=== PATIENT | female | born 1995 | race American Indian/Alaskan Native ===

== ENCOUNTER 2016-08-14 16:20 | Emergency (ER) | payer SELFPAY ==
[2016-08-14 17:14] LABS: Basophils % (Auto) 0.4 % (0.0-1.8); Eosinophils % (Auto) 0.5 % (0.0-4.3); Hematocrit 36.6 % (30.3-42.9); Hemoglobin 11.7 gm/dl (10.1-14.3); Mean Corpuscular HGB Conc 32 % (30-34); Mean Corpuscular Volume 78 fl (79-97); Platelet Count 263 K/mm3 (140-440); Red Blood Count 4.71 M/mm3 (3.65-5.03); Red Cell Distribution Width 15.8 % (13.2-15.2); White Blood Count 10.9 K/mm3 (4.5-11.0)
[2016-08-14 17:24] LABS: Mean Corpuscular Hemoglobin 25 pg (28-32)
[2016-08-14 17:57] LABS: Bilirubin,Urine NEG (Negative); Blood,Urine SM (Negative); Ketones,Urine TR mg/dL (Negative); Leukocyte Esterase,Urine NEG (Negative); Mucus,Urine FEW /HPF; Nitrite,Urine NEG (Negative); Protein,Urine <15 mg/dL mg/dL (Negative); Urobilinogen,Urine < 2.0 mg/dL (<2.0); WBC,Urine < 1.0 /HPF (0.0-6.0)
--- NOTE | 2016-08-14 19:41 | Ultrasound Report ---
FINAL REPORT EXAM: US OB TRANSVAGINAL HISTORY: bleeding TECHNIQUE: Real-time sonography was performed of the gravid uterus endovaginally and images are submitted for interpretation. PRIORS: None FINDINGS: The uterus appears normal and has a grossly normal appearing gestational sac. There is a normal appearing pole measuring 0.23 centimeters for an estimated gestational age of 5 weeks 5 days. Average sac diameter is 1.19 cm for an estimated gestational age of 6 weeks 0 days. A normal-appearing yolk sac is identified. The heart is beating at a rate of 102 beats per minute. Both ovaries are visualized and appear normal. The paternal ovaries appear normal with the right measuring 2.7 x 1.9 x 1.9 cm and the left measuring 2.1 x 1.0 x 1.0 cm. IMPRESSION: Single live intrauterine gestation, estimated gestational age 5 weeks 6 days for an estimated date of confinement of 04/10/2017
--- NOTE | 2016-08-14 19:42 | Ultrasound Report ---
FINAL REPORT EXAM: US OB \T\lt; = 14 WEEKS FETUS HISTORY: bleeding TECHNIQUE: Real-time sonography was performed of the gravid uterus transabdominally and images are submitted for interpretation. PRIORS: None. FINDINGS: The uterus appears normal and has a grossly normal appearing gestational sac. There is a normal appearing pole measuring 0.23 centimeters for an estimated gestational age of 5 weeks 5 days. Average sac diameter is 1.19 cm for an estimated gestational age of 6 weeks 0 days. A normal-appearing yolk sac is identified. The heart is beating at a rate of 102 beats per minute. Both ovaries are visualized and appear normal. The maternal ovaries appear normal with the right measuring 2.7 x 1.9 x 1.9 cm and the left measuring 2.1 x 1.0 x 1.0 cm. IMPRESSION: Single live intrauterine gestation, estimated gestational age 5 weeks 6 days for an estimated date of confinement of 04/10/2017
[2016-08-14 20:57] VITALS: BP 119/77
--- NOTE | 2016-08-14 21:20 | Emergency Department Report ---
ED Female HPI - General Chief complaint: Abdominal Pain Stated complaint: VAGINAL BLEEDING Time Seen by Provider: 08/14/16 20:46 Source: patient Mode of arrival: Ambulatory Limitations: No Limitations - History of Present Illness Initial comments: 20-year-old female with no known past medical history presents to the hospital currently . This is her second with history of one miscarriage. Patient has sexual intercourse last night then developed vaginal bleeding and then progressed to spotting. This complains some mild suparpubic abdominal cramping that is intermittent. No fever reported - Related Data Previous Rx's Medication Instructions Recorded Last Taken Type Vit W-Ca,Fe,FA(<1 mg) 1 each PO DAILY #30 tablet 08/14/16 Unknown Rx [ Vitamins] Allergies Allergy/AdvReac Type Severity Reaction Status Date / Time No Known Allergies Allergy Unverified 08/14/16 16:50 ED Review of Systems ROS: Stated complaint: VAGINAL BLEEDING Other details as noted in HPI Comment: All other systems reviewed and negative Other: Constitutional: No fevers chills Eyes: No eye pain visual changes ENT: No ear pain or throat pain Neck: Denies pain Respiratory: Denies cough wheezing shortness of breath Cardiovascular: Denies chest pain, palpitations, syncope GI: Denies nausea, vomiting, diarrhea : Denies dysuria Musculoskeletal: Denies back pain Skin: Denies rash, lesions, erythema Neurologic: Denies headache, numbness, weakness Psychiatric: Denies suicidal ideation, hallucinations ED Past Medical Hx - Past Medical History Previous Medical History?: No - Surgical History Past Surgical History?: No - Social History Smoking Status: Former Smoker Substance Use Type: None - Medications Home Medications: Home Medications Medication Instructions Recorded Confirmed Last Taken Type Vit W-Ca,Fe,FA(<1 mg) 1 each PO DAILY #30 tablet 08/14/16 Unknown Rx [ Vitamins] ED Physical Exam - General Limitations: No Limitations - Other Other exam information: General: No limitations, patient is alert in no acute distress Head exam: Atraumatic, normocephalic Eyes exam: Normal appearance, pupils equal reactive to light, extraocular movements intact ENT: Moist mucous membrane, normal oropharynx Neck exam: Normal inspection, full range of motion, no meningismus nontender Respiratory exam: Clear to auscultation bilateral, no wheezes, rales, crackles Cardiovascular: Normal rate and rhythm, normal heart sounds Abdomen: Soft, nondistended, mild suprapubic tenderness, with normal bowel sounds, no rebound, or guarding Extremity: Full range of motion normal inspection no deformity Back: Normal Inspection, full range of motion, no tenderness Neurologic: Alert, oriented x3, cranial nerves intact, no motor or sensory deficit Psychiatric: normal affect, normal mood Skin: Warm, dry, intact ED Course Vital Signs 08/14/16 08/14/16 08/14/16 16:51 20:54 20:56 Temperature 98.3 F 98.2 F Pulse Rate 90 103 H Respiratory 14 14 Rate Blood Pressure 132/59 Blood Pressure 119/77 [Left] O2 Sat by Pulse 100 98 Oximetry - Reevaluation(s) Reevaluation #1: 08/14/16 21:18 Patient states her vaginal bleeding stopped after ultrasound ED Medical Decision Making - Lab Data Result diagrams: 08/14/16 16:58 Lab Results 08/14/16 08/14/16 08/14/16 Range/Units 16:58 16:58 17:02 WBC 10.9 (4.5-11.0) K/mm3 RBC 4.71 (3.65-5.03) M/mm3 Hgb 11.7 (10.1-14.3) gm/dl Hct 36.6 (30.3-42.9) % MCV 78 L (79-97) fl MCH 25 L (28-32) pg MCHC 32 (30-34) % RDW 15.8 H (13.2-15.2) % Plt Count 263 (140-440) K/mm3 Lymph % (Auto) 31.6 (13.4-35.0) % [place] % (Auto) 7.1 (0.0-7.3) % Eos % (Auto) 0.5 (0.0-4.3) % Baso % (Auto) 0.4 (0.0-1.8) % Lymph # 3.4 (1.2-5.4) K/mm3 [place] # 0.8 (0.0-0.8) K/mm3 Eos # 0.1 (0.0-0.4) K/mm3 Baso # 0.0 (0.0-0.1) K/mm3 Seg Neutrophils % 60.4 (40.0-70.0) % Seg Neutrophils # 6.6 (1.8-7.7) K/mm3 HCG, Quant 00918 H (0-4) mIU/mL Urine Color (Yellow) Urine Turbidity (Clear) Urine pH (5.0-7.0) Ur Specific [place] (1.003-1.030) Urine Protein (Negative) mg/dL Urine Glucose (UA) (Negative) mg/dL Urine Ketones (Negative) mg/dL Urine Blood (Negative) Urine Nitrite (Negative) Urine Bilirubin (Negative) Urine Urobilinogen (<2.0) mg/dL Ur Leukocyte Esterase (Negative) Urine WBC (Auto) (0.0-6.0) /HPF Urine RBC (Auto) (0.0-6.0) /HPF U Epithel Cells (Auto) (0-13.0) /HPF Urine Mucus /HPF Blood Type B POSITIVE Antibody Screen Negative 08/14/16 Range/Units 17:40 WBC (4.5-11.0) K/mm3 RBC (3.65-5.03) M/mm3 Hgb (10.1-14.3) gm/dl Hct (30.3-42.9) % MCV (79-97) fl MCH (28-32) pg MCHC (30-34) % RDW (13.2-15.2) % Plt Count (140-440) K/mm3 Lymph % (Auto) (13.4-35.0) % [place] % (Auto) (0.0-7.3) % Eos % (Auto) (0.0-4.3) % Baso % (Auto) (0.0-1.8) % Lymph # (1.2-5.4) K/mm3 [place] # (0.0-0.8) K/mm3 Eos # (0.0-0.4) K/mm3 Baso # (0.0-0.1) K/mm3 Seg Neutrophils % (40.0-70.0) % Seg Neutrophils # (1.8-7.7) K/mm3 HCG, Quant (0-4) mIU/mL Urine Color Yellow (Yellow) Urine Turbidity Clear (Clear) Urine pH 5.0 (5.0-7.0) Ur Specific [place] 1.024 (1.003-1.030) Urine Protein <15 mg/dl (Negative) mg/dL Urine Glucose (UA) Neg (Negative) mg/dL Urine Ketones Tr (Negative) mg/dL Urine Blood Sm (Negative) Urine Nitrite Neg (Negative) Urine Bilirubin Neg (Negative) Urine Urobilinogen < 2.0 (<2.0) mg/dL Ur Leukocyte Esterase Neg (Negative) Urine WBC (Auto) < 1.0 (0.0-6.0) /HPF Urine RBC (Auto) 2.0 (0.0-6.0) /HPF U Epithel Cells (Auto) 2.0 (0-13.0) /HPF Urine Mucus Few /HPF Blood Type Antibody Screen - Radiology Data Radiology results: report reviewed (transvaginal/ ultrasound: 5 weeks and 6 days IUP heart 102) - Medical Decision Making Bleeding has spontaneously improved. She does not require RhoGAM based on blood type. Patient has a intrauterine . Vaginal spotting likely induced by sexual activity. Pelvic rest recommended AD[facility]ISTRATIVE NURSING SUPERVISOR follow-up - Differential Diagnosis miscarriage, ectopic, threatened Critical Care Time: No Critical care attestation.: If time is entered above; I have spent that time in minutes in the direct care of this critically ill patient, excluding procedure time. ED Disposition Clinical Impression: 5 weeks gestation of , Threatened Disposition: DISCHARGED TO HOME OR SELFCARE Is pt being admited?: No Does the pt Need Aspirin: No Condition: Stable Instructions: Threatened Miscarriage (ED) Additional Instructions: Avoid sexual activity until cleared by her ADMINISTRATIVE NURSING SUPERVISOR doctor. Follow-up with the doctor provided with the doctor of your choice. Take Tylenol as needed for mild pain and the vitamins provided. Prescriptions: Vit W-Ca,Fe,FA(<1 mg) [ Vitamins] 1 each PO DAILY #30 tablet Referrals: [facility] [Provider Group] - 3-5 Days Time of Disposition: 21:21
== END 2016-08-14 22:01 | disposition home or self-care (01) ==
LOC: ED 16:20
DX: O20.0 Threatened abortion (principal); Z3A.01 Less than 8 weeks gestation of pregnancy; Z87.891 Personal history of nicotine dependence
CPT/HCPCS: 36415; 76801; 76817; 81001; 84702; 85025; 86850; 86900; 86901

== ENCOUNTER 2017-03-24 22:40 | Outpatient (CLI) | payer MEDICAID ==
[2017-03-24] MEDS ORDERED: LACTATED RINGERS 1,000 ML ONE (23:19)
[2017-03-24] MEDS ORDERED: LACTATED RINGERS 1,000 ML IV ONE (23:33)
[2017-03-24 23:40] LABS: Urine Drugs of Abuse Note Disclamer
[2017-03-24 23:50] LABS: Bilirubin,Urine NEG (Negative); Blood,Urine NEG (Negative); Ketones,Urine 20 mg/dL (Negative); Leukocyte Esterase,Urine NEG (Negative); Nitrite,Urine NEG (Negative); Urobilinogen,Urine < 2.0 mg/dL (<2.0)
[2017-03-25] MEDS ORDERED: VISTARIL PO ONE (00:11)
[2017-03-25 00:16] VITALS: BP 110/67
== END 2017-03-25 00:32 | disposition home or self-care (01) ==
LOC: TRG 22:40
PROVIDERS: ATTEND Obstetrics & Gynecology
DX: O47.1 False labor at or after 37 completed weeks of gestation (principal); Z87.891 Personal history of nicotine dependence; Z3A.38 38 weeks gestation of pregnancy
CPT/HCPCS: 59025; 80307; 81001; 96360; J7120; Q0177

== ENCOUNTER 2018-11-11 18:13 | Emergency (ER) | payer MEDICAID ==
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
[2018-11-11] MEDS ORDERED: TYLENOL PO ONE (18:55)
[2018-11-11] MEDS ORDERED: TYLENOL ONE (18:58)
[2018-11-11 19:47] LABS: Basophils # (Auto) 0.1 K/mm3 (0.0-0.1); Eosinophils % (Auto) 0.2 % (0.0-4.3); Hematocrit 36.8 % (30.3-42.9); Hemoglobin 11.7 gm/dl (10.1-14.3); Lymphocytes # (Auto) 3.1 K/mm3 (1.2-5.4); Lymphocytes % (Auto) 28.6 % (13.4-35.0); Mean Corpuscular HGB Conc 32 % (30-34); Mean Corpuscular Volume 78 fl (79-97); Monocytes # (Auto) 0.6 K/mm3 (0.0-0.8); Monocytes % (Auto) 5.8 % (0.0-7.3); Platelet Count 283 K/mm3 (140-440); Red Blood Count 4.73 M/mm3 (3.65-5.03); Red Cell Distribution Width 15.8 % (13.2-15.2)
[2018-11-11 20:11] LABS: Alanine Aminotransferase 8 units/L (7-56); Albumin 4.1 g/dL (3.9-5); BUN/Creatinine Ratio 17; Blood Urea Nitrogen 10 mg/dL (7-17); Calcium 9.1 mg/dL (8.4-10.2); Hemolysis Index 17
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
[2018-11-11 22:34] VITALS: BP 119/77
== END 2018-11-11 22:10 | disposition home or self-care (01) ==
LOC: ED 18:13
DX: R07.89 Other chest pain (principal); R51 Headache
CPT/HCPCS: 36415; 71046; 80053; 85025; 99284

== ENCOUNTER 2022-01-25 22:30 | Emergency (ER) | payer MEDICAID ==
[2022-01-25] MEDS ORDERED: SODIUM CHLORIDE 0.9% 1000 ML 1,000 ML IV ONE (22:51)
[2022-01-25] MEDS ORDERED: LORazepam 2 MG/ML VIAL IV ONE (22:51)
--- NOTE | 2022-01-25 23:12 | Emergency Department Report ---
ED Abdominal Pain HPI - General Chief Complaint: Vaginal Bleeding Stated Complaint: VAGINAL BLEEDING/LOW BP Time Seen by Provider: 01/25/22 22:50 Source: patient, EMS Mode of arrival: Stretcher Limitations: No Limitations - History of Present Illness Initial Comments: Patient is a 26-year-old female brought in by EMS for evaluation of severe abdominal pain and heavy vaginal bleeding. She reportedly had an induced 6 weeks ago at approximately 2 months gestation. She reports bleeding subsided approximately 3 weeks ago. States she was fine up until today. EMS reports hypotension in the 70s on arrival. Unable to establish IV. Blood pres sure normalized upon arrival to ER. - Related Data Previous Rx's Medication Instructions Recorded Last Taken Type Vit Calc,Iron,Folic 1 each PO DAILY #30 tablet 08/14/16 Unknown Rx [ Vitamins] Ibuprofen [Ibuprofen 800] 800 mg PO TID PRN #30 tablet 11/11/18 Unknown Rx Allergies Allergy/AdvReac Type Severity Reaction Status Date / Time No Known Allergies Allergy Unverified 08/14/16 16:50 ED Review of Systems ROS: Stated complaint: VAGINAL BLEEDING/LOW BP Other details as noted in HPI Constitutional: denies: chills, fever Respiratory: denies: cough, shortness of breath, wheezing Cardiovascular: denies: chest pain, palpitations Gastrointestinal: denies: abdominal pain, nausea, diarrhea Genitourinary: denies: urgency, dysuria, discharge Musculoskeletal: denies: back pain, joint swelling, arthralgia Skin: denies: rash, lesions Neurological: denies: headache, weakness, paresthesias Psychiatric: denies: anxiety, depression ED Past Medical Hx - Past Medical History Previous Medical History?: No Hx Hypertension: No Hx Diabetes: No Hx Deep Vein Thrombosis: No Hx Renal Disease: No Hx Sickle Cell Disease: No Hx Seizures: No Hx Asthma: No Hx HIV: No - Surgical History Past Surgical History?: No - Social History Smoking Status: Never Smoker Substance Use Type: None - Medications Home Medications: Home Medications Medication Instructions Recorded Confirmed Last Taken Type Vit Calc,Iron,Folic 1 each PO DAILY #30 tablet 08/14/16 Unknown Rx [ Vitamins] Ibuprofen [Ibuprofen 800] 800 mg PO TID PRN #30 tablet 11/11/18 Unknown Rx ED Physical Exam - General Limitations: No Limitations General appearance: alert, anxious, obese - Head Head exam: Present: atraumatic, normocephalic - Respiratory Respiratory exam: Present: normal lung sounds bilaterally. Absent: respiratory distress - Cardiovascular Cardiovascular Exam: Present: regular rate, normal rhythm, normal heart sounds - GI/Abdominal GI/Abdominal exam: Present: soft, tenderness (Tenderness in left periumbilical region and suprapubic area). Absent: distended, guarding, rebound, mass - Rectal Rectal exam: Present: deferred - Neurological Exam Neurological exam: Present: alert, oriented X3 - Psychiatric Psychiatric exam: Present: normal affect, normal mood - Skin Skin exam: Present: warm, dry, intact, normal color ED Course Vital Signs 01/25/22 22:31 Temperature 98 F Pulse Rate 95 H Respiratory 18 Rate Blood Pressure 117/86 O2 Sat by Pulse 100 Oximetry ED Medical Decision Making - Lab Data Result diagrams: 01/25/22 23:17 01/25/22 23:17 - Medical Decision Making Patient requested to leave AMA for no apparent reason other than stating she just wants to go home. Vital signs are stable. She is ANO x3 and able to make decisions on her own. I discussed with her the risk of leaving AMA including . Patient verbalizes understanding. Critical care attestation.: If time is entered above; I have spent that time in minutes in the direct care of this critically ill patient, excluding procedure time. ED Disposition Clinical Impression: Lower abdominal pain, Vaginal bleeding Disposition: LEFT AGAINST MEDICAL ADVICE Is pt being admited?: No Condition: Stable Forms: AMA Form
[2022-01-25 23:32] LABS: Basophils % (Auto) 0.4 % (0.0-1.8); Eosinophils # (Auto) 0.1 K/mm3 (0.0-0.4); Eosinophils % (Auto) 0.6 % (0.0-4.3); Hemoglobin 12.7 gm/dl (10.1-14.3); Lymphocytes # (Auto) 3.2 K/mm3 (1.2-5.4); Lymphocytes % (Auto) 27.9 % (13.4-35.0); Mean Corpuscular HGB Conc 34 % (30-34); Mean Corpuscular Volume 84 fl (79-97); Monocytes # (Auto) 0.8 K/mm3 (0.0-0.8); Monocytes % (Auto) 7.4 % (0.0-7.3); Platelet Count 214 K/mm3 (140-440); Red Blood Count 4.54 M/mm3 (3.65-5.03); Red Cell Distribution Width 13.9 % (13.2-15.2)
[2022-01-25 23:51] LABS: Alanine Aminotransferase 10 units/L (7-56); Albumin 4.3 g/dL (3.9-5); BUN/Creatinine Ratio 18; Blood Urea Nitrogen 14 mg/dL (7-17); Calcium 9.8 mg/dL (8.4-10.2); Hemolysis Index 54
[2022-01-25 23:59] LABS: Bilirubin,Direct < 0.2 mg/dL (0-0.2)
[2022-01-26] MEDS ORDERED: HYDROcodone/ACETAMINOPHEN 5-325 MG TAB PO ONE (00:35)
--- NOTE | 2022-01-26 04:12 | Ultrasound Report ---
ULTRASOUND OBSTETRIC INDICATION / CLINICAL INFORMATION: Pelvic pain, vaginal bleeding, positive hCG. Beta-hCG 206.9. Statu s post 6 weeks ago at 8 weeks gestation. Clinical Gestational Age (GA) in weeks, days: TECHNIQUE: Transabdominal. COMPARISON: None available. FINDINGS: The uterus measures 9.1 x 4.1 x 4.5 cm. A thickened slightly heterogeneous endometrial stripe measuri ng 9 mm is present, flow noted within the superior aspect. Right ovary not identified. The left ovary measures 6.2 x 4.5 x 4.3 cm. Left ovarian cyst measuring up to 4.1 x 3.1 x 3.2 cm is p resent. Color flow present within the left ovary. No spectral Doppler examination performed. IMPRESSION: 1. Thickened endometrial cavity with heterogeneous hyperechoic material demonstrating presence of col or flow suggests possible retained products of conception. No evidence of intrauterine gestational sa c. 2. Simple appearing left ovarian cyst. Signer Name: Rex Berkowitz II, MD Signed: 01/26/2022 4:07 AM Workstation Name: [id number]
[2022-01-26 05:01] VITALS: BP 133/78
== END 2022-01-26 04:57 | disposition left against medical advice (07) ==
LOC: ED 22:30
DX: N89.8 Other specified noninflammatory disorders of vagina (principal); R10.30 Lower abdominal pain, unspecified
CPT/HCPCS: 36415; 76801; 80048; 80076; 83690; 84702; 84703; 85025; 86850; 86900; 86901; 99284